=== PATIENT | female | born 1995 | race Caucasian/White ===

== ENCOUNTER 2022-06-28 08:59 | Emergency (ER) | payer OTHER ==
[~2022-06-28] VITALS: Ht 172.7 cm; Wt 86.2 kg
[2022-06-28 09:44] VITALS: BP 113/73
[2022-06-28] MEDS ORDERED: Amoxicillin500 MG PO (09:47)
== END 2022-06-28 09:50 | disposition home or self-care (01) ==
LOC: ER 08:59
DX: K04.7 Periapical abscess without sinus (principal)
CPT/HCPCS: 99282

== ENCOUNTER 2022-09-22 18:27 | Emergency (ER) | payer OTHER ==
[~2022-09-22] VITALS: Ht 172.7 cm; Wt 86.2 kg
[~2022-09-22 18:27] MED LIST: AMOCLA875 PO; Amoxicillin500 MG PO
[2022-09-22 18:51] LABS: BASOPHILS ABSOLUTE AUTO 0.04 K/mm3 (0.00-0.23); BASOPHILS PERCENT AUTO 0 % (0-2); EOSINOPHILS ABSOLUTE AUTO 0.13 K/mm3 (0.00-0.68); EOSINOPHILS PERCENT AUTO 1 % (0-6); Hematocrit 40.8 % (33.0-51.0); Hemoglobin 14.6 g/dL (11.5-16.0); IMMATURE GRAN ABSOLUTE AUTO 0.03 K/mm3 (0.00-0.10); IMMATURE GRAN PERCENT AUTO 0 % (0-1); LYMPHOCYTES ABSOLUTE AUTO 2.21 K/mm3 (0.84-5.20); LYMPHOCYTES PERCENT AUTO 20 % (21-46); MONOCYTES ABSOLUTE AUTO 0.57 K/mm3 (0.16-1.47); MONOCYTES PERCENT AUTO 5 % (4-13); Mean Corpuscular HGB 31.4 pg (26.0-34.0); Mean Corpuscular HGB Conc 35.8 g/dL (31.5-36.5); Mean Corpuscular Volume 88 fL (80-100); Mean Platelet Volume 10.3 fL (9.1-12.4); NEUTROPHILS ABSOLUTE AUTO 7.84 K/mm3 (1.96-9.15); NEUTROPHILS PERCENT AUTO 72 % (41-73); Platelet Count 331 K/mm3 (150-400); RDW Coefficient Variation 11.9 % (11.7-14.2); RDW Standard Deviation 38.5 fL (35.1-46.3); Red Blood Cell Count 4.65 M/mm3 (3.80-5.20); White Blood Cell Count 10.82 K/mm3 (4.00-11.30)
[2022-09-22 19:08] LABS: Albumin/Globulin Ratio 1.2 (0.8-1.8); Bun/Creatinine Ratio 15.6 (12.0-20.0); Calcium, Blood 8.8 mg/dL (8.5-10.1); Creatinine, Blood 0.84 mg/dL (0.40-1.00); Globulin, Blood 3.2 g/dL (2.2-4.0); Potassium, Blood 3.6 mmol/L (3.5-5.5); Total Protein, Blood 7.2 g/dL (6.4-8.2)
[2022-09-22 20:00] VITALS: BP 125/78
[2022-09-22] MEDS ORDERED: ESCI10 PO (20:02)
== END 2022-09-22 20:24 | disposition home or self-care (01) ==
LOC: ER 18:27
PROVIDERS: Student in an Organized Health Care Education/Training Program
DX: K64.4 Residual hemorrhoidal skin tags (principal); Z91.018 Allergy to other foods
CPT/HCPCS: 80053; 83690; 85025; 86850; 86900; 86901

== ENCOUNTER 2023-01-15 11:30 | Emergency (ER) | payer OTHER ==
[~2023-01-15] VITALS: Ht 172.7 cm; Wt 83.9 kg
[~2023-01-15 11:30] MED LIST changes: +ESCI10 PO
[2023-01-15 11:38] VITALS: BP 138/91
[2023-01-15] MEDS ORDERED: SERT50 PO (11:46)
[2023-01-15] MEDS ORDERED: CEPH500 PO (12:19)
== END 2023-01-15 12:30 | disposition home or self-care (01) ==
LOC: ER 11:30
DX: M71.522 Other bursitis, not elsewhere classified, left elbow (principal); B96.89 Other specified bacterial agents as the cause of diseases classified elsewhere; Z79.899 Other long term (current) drug therapy; Z91.018 Allergy to other foods
CPT/HCPCS: 99283; A9270